=== PATIENT | female | born 1950 | race Caucasian/White ===

== ENCOUNTER 2022-05-08 11:03 | Outpatient (CLI) | payer OTHER, SELFPAY ==
[2022-05-08 12:22] LABS: Albumin* 4.5 g/dL (3.3-5.0); Chloride* 106 mmol/L (96-114); Potassium* 3.9 mmol/L (3.6-5.1); Sodium* 142 mmol/L (135-149)
[2022-05-08 12:24] LABS: Bilirubin Total* 0.8 mg/dL (0.1-1.5); Carbon Dioxide* 27 mmol/L (20-32); Cholesterol* 181 mg/dL (90-199); Creatinine* 0.8 mg/dL (0.5-1.5); Estimated Glomerular Filt Rate 79 ml/min; Total Protein* 7.1 g/dL (6.0-8.3)
[2022-05-08 12:25] LABS: Alanine Aminotransferase* 32 U/L (4-35); Alkaline Phosphatase* 79 U/L (40-150); Aspartate Amino Transferase* 30 U/L (12-35); Blood Urea Nitrogen* 18 mg/dL (7-30); Calcium* 9.4 mg/dL (8.4-10.6); Glucose* 112 mg/dL (60-115); HDL Cholesterol* 56 mg/dL (>=50); LDL Cholesterol Calculated 85 mg/dL (<100); Triglycerides* 198 mg/dL (40-149)
== END 2022-05-08 11:04 | disposition home or self-care (01) ==
PROVIDERS: PCP Family Medicine; Visit Provider Family Medicine
DX: Z00.00 Encounter for general adult medical examination without abnormal findings (principal); I10 Essential (primary) hypertension; E78.5 Hyperlipidemia, unspecified
CPT/HCPCS: 80053; 80061

== ENCOUNTER 2022-07-23 11:23 | Outpatient (CLI) | payer OTHER, SELFPAY ==
[2022-07-23 11:34] VITALS: BP 152/65; PULSE 59; RESP 16; O2SAT 100
[2022-07-23] MEDS: TETRACAINE 0.5% OPHTH 1 DROP EYE-BOTH ×3 (11:38→11:58)
[2022-07-23] MEDS: BRIMONIDINE TARTRATE 0.2% OPHTH 1 DROP EYE-BOTH ×2 (11:40→12:09)
--- NOTE | 2022-07-23 12:36 | P.OPTPRC_ITS ---
Procedure Note Date of procedure: 07/23/22 Will [facility] bill your pro fee for this procedure?: Yes Procedure Description: SURGEON: Jayleen Franklin MD PREOPERATIVE DIAGNOSIS: Posterior capsular opacity, right and left eye POSTOPERATIVE DIAGNOSIS: Posterior capsular opacity, right and left eye PROCEDURE: YAG laser capsulotomy, both eyes ANESTHESIA: Topical. ESTIMATED BLOOD LOSS: None PATHOLOGY SPECIMEN: None COMPLICATIONS: None INDICATIONS: See consult note for details. The risks, benefits and alternatives of the procedure were explained to the patient, who elected to proceed and signed informed consent to do so. PROCEDURE: The patient was brought to the pre-holding area where the right and left eyes were identified as the operative eyes. I placed my initials above the eyes. The following was given in both eyes: The patient received 2 sets of 1 drop of 0.5% tetracaine and 1 drop of 1% tropicamide. They also received 1 drop of 0.2% brimonidine. They received 1 drop of 0.5% tetracaine immediately prior to bringing them back for the procedure. The patient was then brought to the procedure room where the right and left eyes were again identified as the operative eyes. A YAG Michael capsulotomy lens was placed on the right eye. The laser was administered using a total number of 8 shots with an energy of 2.4 mJ per shot for a total energy of 19 mJ. The patient tolerated the procedure well. A YAG Michael capsulotomy lens was placed on the left eye. The laser was administered using a total number of 16 shots with an energy of 2.4 mJ per shot for a total energy of 38 mJ. The patient tolerated the procedure well. DISPOSITION: The patient was taken back to the pre-holding area and given 1 drop of 0.2% brimonidine in both eyes. They were discharged to home in stable condition. The patient was instructed [facility] call [facility] any sudden change, including dramatic loss of vision, severe pain in the eye or eyebrow region, nausea, or vomiting. The patient was instructed to use the 0.2% brimonidine 1 drop 2 times a day in both eyes for 1 week. The patient will follow up in the clinic in 1-2 weeks. Surgeon: Jayleen Franklin MD
== END 2022-07-23 12:11 | disposition home or self-care (01) ==
LOC: EYE PRC 11:23
PROVIDERS: PCP Family Medicine; Visit Provider Ophthalmology
DX: H26.9 Unspecified cataract (principal)
CPT/HCPCS: 66821; A9270

== ENCOUNTER 2022-10-21 09:18 | Outpatient (CLI) | payer OTHER, SELFPAY ==
--- NOTE | 2022-10-21 09:15 | CRLHL7_ITS ---
For Patients: As a result of the Century Cures Act, medical imaging exams and procedure reports are released immediately into your electronic medical record. You may view this report before your referring provider. If you have questions, please contact your health care provider. BILATERAL SCREENING MAMMOGRAM WITH COMPUTER-AIDED DETECTION AND TOMOSYNTHESIS TECHNIQUE: CC and MLO views were obtained. These mammographic images have been obtained using full-field digital technique. These mammographic images were interpreted with the benefit of computer-aided detection. Breast Tomosynthesis was used in this interpretation. COMPARISON FILM: 09/10/21, 09/03/20, 03/08/19. FINDINGS: There are scattered areas of fibroglandular density IMPRESSION: There is no radiographic evidence for malignancy. ASSESSMENT: BI-RADS Category 2: Benign RECOMMENDATION: Routine screening mammogram in 1 year. A lay language report of this examination will be provided to the patient. Dell Martini M.D. Diagnostic/Nuclear Medicine Radiologist [email or web address] HOLLY/Dictated by: Dell Martini MD @ 10/21/2022 10:12:00 AM (Electronically Signed)
== END 2022-10-21 09:19 | disposition home or self-care (01) ==
LOC: MAMMO 09:19
PROVIDERS: PCP Family Medicine; Visit Provider Family Medicine
DX: Z12.31 Encounter for screening mammogram for malignant neoplasm of breast (principal)
CPT/HCPCS: 77063; 77067

== ENCOUNTER 2022-10-22 11:38 | Day surgery (SDC) | payer OTHER, SELFPAY ==
[2022-10-22] MEDS: LACTATED RINGERS 1000 ML 1,000 ML 100 ML IV (11:55)
[2022-10-22 11:56] VITALS: BMI 35.0
[2022-10-22 12:01] VITALS: BP 142/79; PULSE 62; RESP 16; TEMP 36.7; O2SAT 96
[2022-10-22] MEDS: BUPIVACAINE 0.5 %/EPI 1:200K 30 ML INJECTION (12:36)
--- NOTE | 2022-10-22 13:34 | P.ANES_ITS ---
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
[2022-10-22 13:38] VITALS: BP 142/72; PULSE 56; RESP 16; TEMP 36.6; O2SAT 97
[2022-10-22 13:45] VITALS: BP 140/70; PULSE 57; RESP 16; O2SAT 97
--- NOTE | 2022-10-22 13:48 | W.PM.OPTPROC ---
Procedure Note Date of procedure: 10/22/22 Will [facility] bill your pro fee for this procedure?: Yes Procedure Description: SURGEON: Jayleen Franklin MD PREOPERATIVE DIAGNOSIS: Dermatochalasis, bilateral upper eyelids. POSTOPERATIVE DIAGNOSIS: Dermatochalasis, bilateral upper eyelids. NAME OF OPERATION: Bilateral upper eyelid blepharoplasty. ANESTHESIA: Local monitored anesthesia care. ESTIMATED BLOOD LOSS: Less than 2 cc. COMPLICATIONS: None. IMPLANTS: None. INDICATIONS: The patient is seen today for bilateral upper eyelid blepharoplasty. The patient complains of upper eyelids interfering with vision. I reviewed the visual carrion and facial photographs. Surgery was indicated for functional improvement of vision. The risks, benefits and alternatives were discussed pre-operatively. The risks included pain, infection, bleeding, poor cosmetic result, scarring, asymmetry, need for further treatment including surgery, inability to close lids, dry eyes, decreased vision, loss of vision and loss of eye. The benefits included improvement of symptoms. The alternative was observation and no surgery. All questions were answered to the patient's satisfaction, and the patient elected to proceed with the bilateral upper eyelid blepharoplasty. Informed consent was obtained. PROCEDURE: In a sitting position, the upper eyelid crease was marked with a marking pen, and the pinch technique was used to determine the amount of upper eyelid skin to be excised. A calipers was used to measure for symmetry and to confirm an appropriate amount of remaining skin. The patient was taken to the operating room. 4 cc of anesthetic was injected subcutaneously along the full extent of each upper eyelid. This anesthetic was made with 1:1 of 2% lidocaine with epinephrine and 0.5% bupivacaine. Both eyes were prepped and draped in the usual sterile ophthalmic fashion. The following was performed on both the right and left upper eyelid: A #15 blade was used to incise the skin. Bishops and Jayna scissors were used to excise the skin and orbicularis muscle. Handheld cautery was used to achieve hemostasis. The eyelids were examined for symmetry. The skin was closed with a running 6-0 nylon suture. Erythromycin ointment was applied to the wounds. The patient tolerated the procedure well. DISPOSITION: The patient was sent to the recovery room and discharged to home in stable condition. The patient was given my postoperative instructions handout. The patient was told to ice as directed. The patient will apply erythromycin ophthalmic ointment to the eyelids three times a day until the sutures are removed, then for another three days. The patient will follow up in one week for suture removal or sooner as needed. The patient was instructed to call me or go to the emergency department with any sudden change, including dramatic loss of vision, excessive bleeding, redness or discharge from the incisions, or severe pain in the eye.
== END 2022-10-22 14:24 | disposition home or self-care (01) ==
PROVIDERS: PCP Family Medicine; Visit Provider Ophthalmology
PROC: (CPT 15823; principal; 2022-10-22 11:45)
DX: H02.831 Dermatochalasis of right upper eyelid (principal); H02.834 Dermatochalasis of left upper eyelid; H53.40 Unspecified visual field defects
CPT/HCPCS: 15823; 00103; 99100; A9270; J2704; J3490; J7120

== ENCOUNTER 2023-04-16 07:03 | Outpatient (CLI) | payer OTHER, SELFPAY ==
--- NOTE | 2023-04-16 07:15 | MR_ITS ---
[address] [address] Phone:?[phone] Fax:?[phone] Referring Physician Information: Logan Franklin M.D. [address] [facility] [address] Phone:?[phone] Fax:?[phone] Patient:Elizabeth Trevizo D.O.B:?1950 Sex:?Female Phone:?[phone] [facility] MRN:?[id number] Exam Date:?04/16/2023 EXAM: MRI of the LEFT HIP, without contrast CLINICAL HISTORY: Left lower abdominal pain. Concern for left hip flexor pathology. COMPARISONS: Plain radiographs 04/06/2023. TECHNICAL: MR sequences of the left hip: Axials: PD FS Axial oblique: PD Coronals: PD, T2 Coronal pelvis: T1 and STIR Sagittals: PD and T2 CONTRAST: None SEDATION: None FINDINGS: Pelvis osseous structures: Sacrum: No fracture or destructive osseous lesion is seen of the imaged portions of the sacrum. Sacroiliac joints: Mild degenerative changes of both sacroiliac joints. Pubic rami: Unremarkable. Symphysis pubis: There is no evidence of acute osteitis pubis. Labrum: Attenuation, ill-definition, and irregularity of essentially the entire left hip labrum are findings consistent with fraying/ill-defined tearing. There is a 6 x 6 x 5 mm posterosuperior paralabral cyst best seen on sagittal series 8 image 20 and coronal series 5 image 12. Hip joint: Physiologic amount of joint fluid. No discrete left hip chondral defect is seen although the cartilage is not optimally evaluated by this nonarthrogram study. No subchondral cystic change/subchondral edema-like signal. Proximal femur: No fracture, osseous stress injury, avascular necrosis, or suspicious bone marrow signal abnormality is seen. Acetabulum: No subchondral cysts, periacetabular ossicles or marrow edema. Coverage: Left lateral center edge (CE) angle measures approximately 43? (normal 25?-39?) correcting for coronal pelvic tilt, midline coronal series 4 image 15. Ligamentum teres: Unremarkable. Myotendinous structures: Gluteus abductors: The gluteus minimus and medius tendons are unremarkable. Rectus abdominis-adductor longus aponeurosis, adductors, and rectus abdominis: Unremarkable. Hamstrings: Unremarkable. Flexors: The iliopsoas and rectus femoris tendons are intact. Quadratus femoris muscle: Unremarkable. Gluteal aponeurotic fascia and IT band: Unremarkable. Pelvic soft tissues: Unremarkable. IMPRESSION: 1. Attenuation, ill-definition, and irregularity of essentially the entire left hip labrum are findings consistent with fraying/ill-defined tearing. 6 x 6 x 5 mm posterosuperior paralabral cyst. No evidence of discrete left hip chondral defect although it must be noted that the cartilage is not well evaluated directly by this nonarthrogram study. No subchondral cystic change/subchondral edema-like signal. 2. Left acetabular overcoverage. 3. No fracture, osseous stress injury, or tendinous pathology of the left hip. No evidence of left hip flexor muscle/tendon injury. RCB Electronically signed on 04/17/2023 10:43:00 AM by Mahesh Jones M.D.
== END 2023-04-16 07:04 | disposition home or self-care (01) ==
LOC: MRI 07:03
PROVIDERS: PCP Family Medicine; Visit Provider Orthopaedic Surgery
DX: R10.30 Lower abdominal pain, unspecified (principal); S73.102A Unspecified sprain of left hip, initial encounter
CPT/HCPCS: 73721

== ENCOUNTER 2023-06-02 13:00 | Outpatient (RCR) | payer OTHER, SELFPAY ==
--- NOTE | 2023-05-12 15:45 | PT.OPEX ---
PT Ward Outpatient Eval PT [facility] Outpatient Eval Start: 05/12/23 12:33 Freq: Status: Active Protocol: Document 05/12/23 12:34 NLR (Rec: 05/12/23 14:15 NLR [id number]) E-signed By Talia Davison DPT Physical Therapy Outpatient Evaluation Insurance Information Recert Due Date 08/10/23 Insurance Name Medicare B,[employer] Medical Diagnosis M25.552 Left Hip Pain Treating Diagnosis M25.552 Left Hip Pain M25.562 Left Hip Stiffness Referring MD Neri Franklin MD Subjective Subjective Patient has had left hip pain for 6-9 months, no precipitating injury. She mostly has difficulty if standing for a long time, especially in the cold. Max standing is about 15 minutes. Tried going to a yoga class on her own at [address], but she felt she was way too stiff to continue after one class. She is hesitant to kneel following her TKA in 2018. Right knee is a C+. Pain Comments 1-10/11. Today 05/13. Worse with standing, does not wake up at night but has to be careful with positioning. Describes it as a dull and persistent pain. Points to left TFL/glute min/med for location of pain. Pain relieved with sitting. Sometimes slow-moving things like vacuuming will aggravate. Walks about five days a week, 2-3 days a week. 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 No radiation or tingling/numbness . 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 She is a cross country skier, but has not been able to ski this year due to no snow. Preferred Name Eve Precautions Treatment Precautions/Contraindications None known. Weight Bearing Status Full Weight Bearing Therapy Limitations/Systems Review Not Limited Objective Range of Motion B hips grossly WFL, however patient exhibits moderate hypoflexibility through low back and B hips/knees. Specificially hypoflexibility noted at B hamstring, B quad and hip flexor, B ITB, B piriformis/glutes and B QL. R knee lacks 5 degrees extension. Strength Hip flexion R 4/5, L 4+/5. Other LE grossly WFL. Abs grossly 3/5. Palpation Dificult to elicit pain via palpation. LE muscle groups grossly taut. Posture R shoulder lower than L, shoulder are shifted to the Right over pelvis and significantly shifted backward , B UE held in IR, R LE held in ER compared to the L, R PSIS 2 cm high compared to left, R knee held in flexion during stance. Other/Pertinent Objective Pertinent PMH: 2015 B knee meniscectomy; 2018 Left TKA R FADDIR -, R JENNIE -, HIP SCOUR - L FADDIR -, JENNIE ++, HIP SCOUR ++ Functional Test Performed & Score LEFS 66/80 (17% impairment) Assessment Assessment/Impression Patient is a pleasant 72 year old female who presents with 6 -9 month history of L sided hip pain which she pinpoints to glute min/med and TFL junction. We cannot elicit the pain with palpation. MRI indicates non-specific labrum fraying and possible acetabular impingement. She presents with right shifted and extremely backwards shifted posture, with R high PSIS and moderate to significant hypoflexibility at all hip and low back muscle groups. Abdominal muscles are weak. She would benefit from a skilled physical therapy plan of care to work on hip and core strengthening, stretching and other hip mobility and postural correction exercises. She may benefit from dry needling if problematic hip group muscles can be identified. Goals as stated. Primary Functional Limitations Difficulty standing for more than 15 minutes. Difficulty with slow movinig activities such as vacuuming. Plan of Care Rehabilitation Potential Good Rehabilitation Potential Comments Patient is motivated to improve. Hypoflexibility is likely very long standing. Physical Therapy Goals 1. Patient will be independent in HEP as instructed, modified and progressed by physical therapist by dismissal from physical therapy. 2. Patient will tolerate standing for 30-60 minutes to allow her to do community based activities such as grocery shopping with no increase in pain past 2/10 by dismissal from PT. 3. Patient will tolerate vacuuming for one hour with no increase in pain past 2/10 by dismissal from PT. Coordination/Communication With Referral Source Treatment Plan/Direct Interventions Manual Therapy,Neuromuscular Re-ed,Therapeutic Activities, Therapeutic Exercises,Other - See Comments Direct Interventions Clarification Consider Dry Needling Comments Frequency/Duration 1-2 visits per week for 6-8 weeks Evaluation Billing Untimed Code Treatment Minutes 30 Complexity Low Certification Information Initial Certification Date 05/12/23 Ending Certification Date 08/10/23 Provider Signature Shows Agreement With POC & Medical Necessity Physician Signature & Date Requested Please Sign/Date Here Physician Comment/Change : Physician NPI Number #
== END 2023-08-18 17:44 | disposition home or self-care (01) ==
PROVIDERS: PCP Family Medicine; Visit Provider Orthopaedic Surgery
DX: M25.552 Pain in left hip (principal); M25.652 Stiffness of left hip, not elsewhere classified; Z51.89 Encounter for other specified aftercare
CPT/HCPCS: 97110; 97112; 97140; 97161

== ENCOUNTER 2023-10-01 07:52 | Outpatient (CLI) | payer OTHER, SELFPAY ==
--- OUTSIDE RECORDS SUMMARY | 2023-10-05 20:42 | XMS_ITS | Encounter Summary ---
Author Organization [facility] Address [address] [place] [address] Care Team Providers Care Wire Dropper Name Role Phone Pao Leggett MD Primary Care Provider Encounter Details Date Type Department Care Team (Latest Contact Info) Description 07/20/1995 Orders Only Dorene Rae MD Social History Tobacco Use Types Packs/Day Years Used Date Smoking Tobacco: Never Assessed Sex and Gender Information Value Date Recorded Sex Assigned at Not on file Gender Identity Not on file Sexual Orientation Not on file documented as of this encounter Plan of Treatment Not on file documented as of this encounter Visit Diagnoses Not on filedocumented in this encounter Care Teams Wire Dropper Relationship Specialty Start Date End Date Pao Leggett MD [address] [place] [id number] PCP - General 01/28/13 documented as of this encounter
--- OUTSIDE RECORDS SUMMARY | 2023-10-05 20:42 | XMS_ITS | Clinical Summary ---
Author Organization [facility] Address [place], [place] [address] Care Team Providers Care Laborer/Key Man Name Role Phone Pao Leggett MD Primary Care Provider Unavai lable Allergies No known active allergies Medications Medication Sig Dispensed Refills Start Date End Date Status atorvastatin (LIPITOR) 20 mg tablet Take 1 tablet by mouth once daily. 0 03/17/2012 Active ibuprofen (ADVIL; MOTRIN) 800 mg tablet 09/20/2014 Act che[place] losartan-hydrochloroth iazide (HYZAAR) 100-25 mg tablet 09/28/2014 Active Active Problems No known active problems Social History Tobacco Use Types Packs/Day Years Used Date Smoking Tobacco: Never Alcohol Use Standard Drinks/Week Comments No 0 (1 standard drink = 0.6 oz pur e alcohol) Sex and Gender Information Value Date Recorded Sex Assigned at Not on file Gender Identity Not on file Sexual Orientation Not on file Obstetrics History Last Filed Vital Signs Vital Sign Reading Time Taken Comments Blood Pressure 124/83 04/26/2015 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 Pulse 73 10/26/2006 5:06 PM CDT Temperature 36.7 ??C (98 ??F) 10/06/2006 4:30 PM CDT Respiratory Rate 16 10/26/2006 5:06 PM CDT Oxygen Saturation - - Inhaled Oxygen Concentration - - Weight 100 kg (220 lb 8 oz) 10/06/2006 4:30 PM C DT Height - - Body Mass Index - - Plan of Treatment Health Maintenance Due Date Last Done Comments Tdap 10/20/1962 Depression screening for age 12+ 1963 BMI (ht and wt on same day) for age 18+ 10/20/1969 Hepatitis C screening for age 18-79 10/20/1969 Tetanus booster 1971 Colonoscopy through age 75 10/20/1996 Lipids for age 45-75 10/20/1996 Mammogram for age 45-75 10/20/1996 Zoster (shingles) series for age 50+ (1 of 2) 10/21/19 02 DEXA/DXA scan for age 65+ 10/20/2016 08/18/2008 Pneumococcal series for age 65+ (1 of 1 - PCV) 017 COVID-19 vaccine series (1 - 2022- season) 3 Influenza for age 65+ 01/03/2024 Procedures Procedure Name Priority Date/Time Associated Diagnosis Comments XR DXA BONE DENSITY 2 SITES AXIAL Routine 08/18/2008 8:45 AM CDT Osteoporosis Screening from Last 3 Months or Most Recently Relevant to Health Maintenance Results * XR DEXA BONE DENSITY 2 SITES (08/18/2008 8:45 AM CDT) Anatomical Region Laterality Modality Spine, HIPS, HIPL, HIPR Other 08/18/2008 8:45 AM CDT Narrative 08/18/2008 2:21 PM CDT Please see scanned document for results of this study. Procedure Note Suzan Bowman PA - 08/24/2008 Please see scanned document for results of this study. Pao Leggett MD DEXA from Last 3 Months or Most Recently Relevant to Health Maintenance Care Teams Laborer/Key Man Relationship Specialty Start Date End Date Pao Leggett MD PCP - General 02/28/06
--- OUTSIDE RECORDS SUMMARY | 2023-10-05 20:42 | XMS_ITS | Encounter Summary ---
Author Organization [facility] Address [address] [place] [address] Care Team Providers Care Legal Executive Assistant Name Role Phone Pao Leggett MD Primary Care Provider [phone] Encounter Details Date Type Department Care Team (Late st Contact Info) Description 02/28/2013 Orders Only [facility] [address] [place] [address] Jose López MD [address] [place] [address] Tear of medial cartilage or meniscus of knee, current Social History Tobacco Use Types Packs/Day Years Used Date Smoking Tobacco: Never Assessed Sex and Gender Information Value Date Recorded Sex Assigned at Not on file Gender Identity Not on file Sexual Orientation Not on file documented as of this encounter Plan of Treatment Not on file documented as of this encounter Visit Diagnoses Diagnosis Tear of medial cartilage or meniscus of knee, current documented in this encounter Care Teams Legal Executive Assistant Relationship Specialty Start Date End Date Pao Leggett MD [address] [place] [id number] PCP - General 01/28/13 documented as of this encounter
--- OUTSIDE RECORDS SUMMARY | 2023-10-05 20:42 | XMS_ITS | Encounter Summary ---
[facility] Address [address] [place] [address] Care Team Providers Care Bed Spring Maker Name Role Phone Pao Leggett MD Primary Care Provider Encounter Details Date Type Department Care Team (Latest Contact Info) Description 02/13/1995 Orders Only Dorene Rae MD Social History [...] on filedocumented in this encounter Care Teams Bed Spring Maker Relationship Specialty Start Date End Date Pao Leggett MD [address] [place] [id number] PCP - General 01/28/13 documented as of this encounter
--- OUTSIDE RECORDS SUMMARY | 2023-10-05 20:42 | XMS_ITS | Clinical Summary ---
Author Organization [facility] Address [address] [place] [address] Care Team Providers Care Hardware Installer Name Role Phone Pao Leggett MD Primary Care Provider [phone] Source Comments You are receiving this document as you are listed as the primary care provider,follow-up provider, or the patient has been referred to you for consultation.This is in compliance with the Medicare andNationwide Children'S Hospitalcaid EHR Incentive Program,which states Providers who transition their patient to another setting of careor provider of care or refers their patient to another provider of care shouldprovide summary care record for each transition of care or referral. [facility] Allergies No known active allergies Medications Medication Sig Dispensed Refills Start Date End Date Status Atorvastatin Calcium (LIPITOR OR) Unsure of dosage Active atorvastatin (AKA LIPITOR) 40 MG tablet Take 40 mg by mouth daily (every 24 hours). 02/24/2013 Active losartan (AKA COZAAR) 100 MG tablet Take 100 mg by mouth daily (every 24 hours). 02/24/2013 Active ibuprofen (MOTRIN) 800 MG tablet Take 1 tablet by mouth every 8 hours as needed for Pain. 90 tablet 12 02/28/2013 Active Active Problems Problem Noted Date Diagnosed Date Primary osteoarthritis of left knee 07/24/2016 Family History Medical History Relation Name Comments Cancer Father Heart Disease Mother Relation Name Status Comments Father Mother Social History Tobacco Use Types Packs/Day Years Used Date Smoking Tobacco: Never Smokeless Tobacco: Never Alcohol Use Standard Drinks/Week Comments No 0 (1 standard drink = 0.6 oz pur e alcohol) Sex and Gender Information Value Date Recorded Sex Assigned at Not on file Gender Identity Not on file Sexual Orientation Not on file Last Filed Vital Signs Vital Sign Reading Time Taken Comments Blood Pressure 132/78 07/27/2015 8:16 AM CDT Pulse 70 06/26/2011 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 Temperature 36.6 ??C (97.9 ??F) 07/24/2016 8:30 AM CD T Respiratory Rate - - Oxygen Saturation - - Inhaled Oxygen Concentration - - Weight 102.1 kg (225 lb) 07/27/2015 8:16 AM CDT Height 175.3 cm (5' 9) 07/27/2015 8:16 AM CDT Body Mass Index 33.23 07/27/2015 8:16 AM CDT Plan of Treatment Health Maintenance Due Date Last Done Comments Colon Cancer Screening Plan Due 1950 Hep C Screening (Preventive Services) 1950 DTaP/Tdap/Td (1 - Tdap) 10/20/1970 Mammogram 12/11/1994 12/11/1993 Adult Preventive Visit 01/22/1996 5, 12/02/1993 Cholesterol 10/20/1996 Zoster/Shingles (1 of 2) 10/20/2001 Pneumococcal 65+ Yrs (1 - PCV) 10/20/2016 COVID-19 Vaccine ( - 2022-2 4 season) 2023 Influenza (Season Ended) 2024 HepA Aged Out No longer eligi ble based on patient's age to complete this topic HepB Aged Out No longer eligi ble based on patient's age to complete this topic Hib Aged Out No longer eligi ble based on patient's age to complete this topic IPV (Polio) Aged Out No longer eligi ble based on patient's age to complete this topic MCV4 Aged Out No longer eligi ble based on patient's age to complete this topic Care Teams Hardware Installer Relationship Specialty Start Date End Date Pao Leggett MD [address] [place] [id number] PCP - General 01/28/13
--- OUTSIDE RECORDS SUMMARY | 2023-10-05 20:42 | XMS_ITS | Encounter Summary ---
[facility] Address [address] [place] [address] Care Team Providers Care Research Librarian Name Role Phone Pao Leggett MD Primary Care Provider Encounter Details Date Type Department Care Team (Latest Contact Info) Description 01/21/1995 Orders Only Dorene Rae MD Social History [...] on filedocumented in this encounter Care Teams Research Librarian Relationship Specialty Start Date End Date Pao Leggett MD [address] [place] [id number] PCP - General 01/28/13 documented as of this encounter
--- OUTSIDE RECORDS SUMMARY | 2023-10-05 20:42 | XMS_ITS | Encounter Summary ---
Author Organization [facility] Address [address] [place] [address] Care Team Providers Care Manager Title Name Role Phone Pao Leggett MD Primary Care Provider [phone] Encounter Details Date Type Department Care Team (Latest Contact Info) Description 08/25/1994 Orders Only Ferny Gomez MD [address] [place] [address] Social History Tobacco Use Types Packs/Day Years Used Date Smoking Tobacco: Never Assessed Sex and Gender Information Value Date Recorded Sex Assigned at Not on file Gender Identity Not on file Sexual Orientation Not on file documented as of this encounter Plan of Treatment Not on file documented as of this encounter Visit Diagnoses Not on filedocumented in this encounter Care Teams Manager Title Relationship Specialty Start Date End Date Pao Leggett MD [address] [place] [address] PCP - General 01/28/13 documented as of this encounter
--- OUTSIDE RECORDS SUMMARY | 2023-10-05 20:42 | XMS_ITS | Encounter Summary ---
[facility] Address [address] [place] [address] Care Team Providers Care Silver Service Waiter Name Role Phone Pao Leggett MD Primary Care Provider [phone] Encounter Details Date Type Department Care Team (Latest Contact Info) Description 03/08/1995 Orders Only Heather Zacarias MD Social History Tobacco Use Types Packs/Day Years Used Date Smoking Tobacco: Never Assessed Sex and Gender Information Value Date Recorded Sex Assigned at Not on file Gender Identity Not on file Sexual Orientation Not on file documented as of this encounter Plan of Treatment Not on file documented as of this encounter Visit Diagnoses Not on filedocumented in this encounter Care Teams Silver Service Waiter Relationship Specialty Start Date End Date Pao Leggett MD [address] [place] [address] PCP - General 01/28/13 documented as of this encounter
== END 2023-10-01 07:53 | disposition home or self-care (01) ==
LOC: NFLDREF 10-05 20:39
PROVIDERS: PCP Family Medicine; Referring Provider Family Medicine; Visit Provider Family Medicine
DX: E78.2 Mixed hyperlipidemia (principal); I10 Essential (primary) hypertension; E78.5 Hyperlipidemia, unspecified
CPT/HCPCS: 80053; 80061

== ENCOUNTER 2023-10-28 07:40 | Outpatient (CLI) | payer OTHER, SELFPAY ==
--- OUTSIDE RECORDS SUMMARY | 2023-10-28 07:43 | XMS_ITS | Clinical Summary ---
Author Organization [facility] Address [address] [place] [address] Care Team Providers Care Rice Field Worker Name Role Phone Pao Leggett MD Primary Care Provider [phone] Source Comments You are receiving this document as you are listed as the primary care provider,follow-up provider, or the patient has been referred to you for consultation.This is in compliance with the Medicare and[facility] Hospital[facility] EHR Incentive Program,which states Providers who transition their patient to another setting of careor provider of care or refers their patient to another provider of care shouldprovide summary care record for each transition of care or referral. [facility] Allergies No known active allergies Medications Medication [...] AM CDT Pulse 70 06/26/2011 2:23 PM CHECKER Temperature 36.6 ??C (97.9 ??F) 07/24/2016 8:30 [...] age to complete this topic Care Teams Rice Field Worker Relationship Specialty Start Date End Date Pao Leggett MD [address] [place] [id number] PCP - General 01/28/13
--- OUTSIDE RECORDS SUMMARY | 2023-10-28 07:43 | XMS_ITS | Encounter Summary ---
[facility] Address [address] [place] [address] Care Team Providers Care Telecom Manager Name Role Phone Pao Leggett MD Primary [...] on filedocumented in this encounter Care Teams Telecom Manager Relationship Specialty Start Date End Date Pao Leggett MD [address] [place] [address] PCP - General 01/28/13 documented as of this encounter
--- OUTSIDE RECORDS SUMMARY | 2023-10-28 07:43 | XMS_ITS | Encounter Summary ---
Author [facility] Address [address] [place] [address] Care Team Providers Care Neurosurgery Physician Name Role Phone Pao Leggett MD Primary [...] on filedocumented in this encounter Care Teams Neurosurgery Physician Relationship Specialty Start Date End Date Pao Leggett MD [address] [place] [address] PCP - General 01/28/13 documented as of this encounter
--- OUTSIDE RECORDS SUMMARY | 2023-10-28 07:43 | XMS_ITS | Encounter Summary ---
Author Organization [facility] Address [address] [place] [address] Care Team Providers Care Master Control Engineer Name Role Phone Pao Leggett MD Primary [...] on filedocumented in this encounter Care Teams Master Control Engineer Relationship Specialty Start Date End Date Pao Leggett MD [address] [place] [address] PCP - General 01/28/13 documented as of this encounter
--- OUTSIDE RECORDS SUMMARY | 2023-10-28 07:43 | XMS_ITS | Encounter Summary ---
Author Organization [facility] Address [address] [place] [address] Care Team Providers Care Patient Care Coordinator Name Role Phone Pao Leggett MD Primary [...] on filedocumented in this encounter Care Teams Patient Care Coordinator Relationship Specialty Start Date End Date Pao Leggett MD [address] [place] [address] PCP - General 01/28/13 documented as of this encounter
--- OUTSIDE RECORDS SUMMARY | 2023-10-28 07:43 | XMS_ITS | Encounter Summary ---
[facility] Address [address] [place] [address] Care Team Providers Care Excelsior Cutter Name Role Phone Pao Leggett MD Primary Care Provider [phone] Encounter Details Date Type Department Care Team (Latest Contact Info) Description 08/25/1994 Orders Only Ferny Gomez MD [address] [place] [address] Social History Tobacco Use Types Packs/Day Years Used Date Smoking Tobacco: Never Assessed Sex and Gender Information Value Date Recorded Sex Assigned at Not on file Gender Identity Not on file Sexual Orientation Not on file documented as of this encounter Plan of Treatment Not on file documented as of this encounter Visit Diagnoses Not on filedocumented in this encounter Care Teams Excelsior Cutter Relationship Specialty Start Date End Date Pao Leggett MD [address] [place] [address] PCP - General 01/28/13 documented as of this encounter
--- OUTSIDE RECORDS SUMMARY | 2023-10-28 07:43 | XMS_ITS | Clinical Summary ---
Author Organization [facility] Address [place], [place] [address] Care Team Providers Care Customer Support Specialist Name Role Phone Pao Leggett MD Primary [...] Comments Blood Pressure 124/83 04/26/2015 9:12 AM [employer]NAL SALES Pulse 73 10/26/2006 5:06 PM CDT Temperature [...] for results of this study. Procedure Note Suazn Bowman PA - 08/24/2008 Please see scanned document for results of this study. Pao Leggett MD DEXA from Last 3 Months or Most Recently Relevant to Health Maintenance Care Teams Customer Support Specialist Relationship Specialty Start Date End Date Pao Leggett MD PCP - General 02/28/06
--- OUTSIDE RECORDS SUMMARY | 2023-10-28 07:43 | XMS_ITS | Encounter Summary ---
Author Organization [facility] Address [address] [place] [address] Care Team Providers Care Reception Manager Name Role Phone Pao Leggett MD Primary Care Provider [phone] Encounter Details Date Type Department Care Team (Late st Contact Info) Description 02/28/2013 Orders Only [facility] [address] [place] [address] Jose López MD [address] [place] [address] Tear of medial cartilage or meniscus of [...] current documented in this encounter Care Teams Reception Manager Relationship Specialty Start Date End Date Pao Leggett MD [address] [place] [id number] PCP - General 01/28/13 documented as of this encounter
--- NOTE | 2023-10-28 07:45 | CRLHL7_ITS ---
For Patients: As a result of the Century Cures Act, medical imaging exams and procedure reports are released immediately into your electronic medical record. You may view this report before your referring provider. If you have questions, please contact your health care provider. BILATERAL SCREENING MAMMOGRAM WITH COMPUTER-AIDED DETECTION AND TOMOSYNTHESIS TECHNIQUE: CC and MLO views were obtained. These mammographic images have been obtained using full-field digital technique. These mammographic images were interpreted with the benefit of computer-aided detection. Breast Tomosynthesis was used in this interpretation. COMPARISON FILM: 10/21/22, 09/10/21, 09/03/20. FINDINGS: There are scattered areas of fibroglandular density. IMPRESSION: There is no radiographic evidence for malignancy. ASSESSMENT: BI-RADS Category 1: Negative RECOMMENDATION: Routine screening mammogram in 1 year. A lay language report of this examination will be provided to the patient. Bobby Burleson M.D. Diagnostic Radiologist [email or web address] SP/Dictated by: Bobby Burleson MD @ 11/03/2023 11:02:00 AM (Electronically Signed)
== END 2023-10-28 07:41 | disposition home or self-care (01) ==
LOC: MAMMO 07:41
PROVIDERS: PCP Family Medicine; Visit Provider Family Medicine
DX: Z12.31 Encounter for screening mammogram for malignant neoplasm of breast (principal)
CPT/HCPCS: 77063; 77067

== ENCOUNTER 2025-03-08 10:27 | Outpatient (CLI) | payer OTHER, SELFPAY | END 2025-03-08 10:28 | disposition home or self-care (01) | PROVIDERS: PCP Family Medicine; Visit Provider Family Medicine | DX: E78.2 Mixed hyperlipidemia (principal); I10 Essential (primary) hypertension; J30.1 Allergic rhinitis due to pollen | CPT/HCPCS: 80053; 80061 ==

== ENCOUNTER 2025-04-11 07:23 | Outpatient (CLI) | payer OTHER, SELFPAY ==
--- NOTE | 2025-04-11 08:45 | CRLHL7_ITS ---
For Patients: As a result of the Century Cures Act, medical imaging exams and procedure reports are released immediately into your electronic medical record. You may view this report before your referring provider. If you have questions, please contact your health care provider. INDICATION: BILATERAL SCREENING MAMMOGRAM, ASYMPTOMATIC 74 Y/O FEMALE COMPARISON: 10/28/2023, 10/21/2022, 09/10/2021 TECHNIQUE: Digital mammogram in CC and MLO projections including computer-aided detection (CAD) and tomosynthesis. BREAST COMPOSITION: There are scattered areas of fibroglandular density. FINDINGS: No suspicious findings. ASSESSMENT: BI-RADS 1 Negative RECOMMENDATION: Annual screening mammogram. A lay language report of this examination will be provided to the patient. Dictated by: Bobby Burleson MD @ 04/11/2025 09:42:58 (Electronically Signed)
== END 2025-04-11 07:24 | disposition home or self-care (01) ==
LOC: MAMMO 07:23
PROVIDERS: PCP Family Medicine; Visit Provider Family Medicine
DX: Z12.31 Encounter for screening mammogram for malignant neoplasm of breast (principal)
CPT/HCPCS: 77063; 77067

== ENCOUNTER 2025-04-12 20:25 | Outpatient (CLI) | payer OTHER, SELFPAY ==
--- NOTE | 2025-04-18 12:12 | W.PM.SLEEP ---
Sleep Study Details Details Interpreting Provider: Ralph Date of Sleep Study: 04/12/25 Sleep Study Details: STUDY TYPE:? Hospital-based, attended, CPAP titration ? BMI:? 35 ORDERING PROVIDER:? Alivia INDICATION:? Concern for sleep apnea ? SLEEP SUMMARY:? 354.5 minutes sleep time RESPIRATORY SUMMARY:? AHI 13.1 per CMS guideline, 19.6 per rule 1A. Nonsupine REM AHI 65.9. Note that the diagnostic portion of study was done and the nonsupine position CPAP titration was performed up to a pressure of 10 which effectively eliminated all apnea and included supine REM sleep. PERIODIC LIMB MOVEMENTS OF SLEEP:? None CARDIAC:? Awake 64 sleep 59, PACs noted IMPRESSION:? Mild obstructive apnea per CMS guideline with severe apnea in nonsupine REM sleep. CPAP titration successful to pressure of 10 which included supine REM sleep RECOMMENDATION: Initiate CPAP AutoSet pressure 7-15. Weight loss is also recommended.
== END 2025-04-12 20:26 | disposition home or self-care (01) ==
LOC: SLEEP 20:26
PROVIDERS: PCP Family Medicine; Visit Provider Otolaryngology
DX: G47.33 Obstructive sleep apnea (adult) (pediatric) (principal)
CPT/HCPCS: 95810